=== PATIENT | female | born 1980 | race American Indian/Alaskan Native ===

== ENCOUNTER 2018-06-30 23:15 | Emergency (ER) | payer MEDICAID ==
[~2018-06-30] VITALS: Ht 170.2 cm; Wt 75.0 kg
[~2018-06-30 23:15] MED LIST: CLIN300C85 PO; HYDR-3965 PO; NO HOME MEDS; ONDA8TAB9 PO; PENI500T2 PO
[2018-06-30 23:21] VITALS: BP 156/97
== END 2018-07-01 03:45 | disposition left against medical advice (07) ==
LOC: ER 23:16
DX: K08.89 Other specified disorders of teeth and supporting structures (principal); Z53.21 Procedure and treatment not carried out due to patient leaving prior to being seen by health care provider

== ENCOUNTER 2018-11-01 21:07 | Emergency (ER) | payer MEDICAID ==
[~2018-11-01] VITALS: Ht 170.2 cm; Wt 82.8 kg
[~2018-11-01 21:07] MED LIST changes: +CLIN-96 PO; -CLIN300C85 PO
[2018-11-01 21:21] VITALS: BP 151/92
[2018-11-01 22:12] LABS: URINE HCG NEGATIVE (NEG)
== END 2018-11-01 23:02 | disposition home or self-care (01) ==
LOC: ER 21:08
DX: R10.84 Generalized abdominal pain (principal); J45.909 Unspecified asthma, uncomplicated; F17.200 Nicotine dependence, unspecified, uncomplicated; Z98.890 Other specified postprocedural states; Z79.899 Other long term (current) drug therapy; Z59.0 Homelessness; Z56.0 Unemployment, unspecified
CPT/HCPCS: 81025; 99283

== ENCOUNTER 2018-12-03 21:07 | Emergency (ER) | payer MEDICAID ==
[~2018-12-03] VITALS: Ht 170.2 cm; Wt 79.5 kg
--- NOTE | 2018-12-03 22:01 | NUR ---
CASE # [id number] Addendum: 12/03/18 at 2223 by DEISY case # [id number]
--- NOTE | 2018-12-03 22:02 | NUR ---
[employer]IDIA OFFICER HERE TO SEE PT.
--- NOTE | 2018-12-03 22:02 | NUR ---
POLICE HERE. TOOK HIM TO HER.
[2018-12-03 22:56] VITALS: BP 145/87
== END 2018-12-03 22:57 | disposition home or self-care (01) ==
LOC: ER 21:07
DX: S50.12XA Contusion of left forearm, initial encounter (principal); J45.909 Unspecified asthma, uncomplicated; F15.90 Other stimulant use, unspecified, uncomplicated; Z90.49 Acquired absence of other specified parts of digestive tract; Z98.890 Other specified postprocedural states; Z79.899 Other long term (current) drug therapy; Z59.0 Homelessness; Z56.0 Unemployment, unspecified; Y00.XXXA Assault by blunt object, initial encounter; Y93.89 Activity, other specified; Y92.89 Other specified places as the place of occurrence of the external cause; Y99.8 Other external cause status
CPT/HCPCS: 73090; 99283

== ENCOUNTER 2019-01-30 00:53 | Emergency (ER) | payer MEDICAID ==
[~2019-01-30] VITALS: Ht 170.2 cm; Wt 80.0 kg
[2019-01-30 01:34] LABS: BASOPHILS % (AUTO) 0.3 % (0-1); EOSINOPHILS % (AUTO) 0.1 % (0-6); HEMATOCRIT 32.4 % (35.0-45.0); LYMPHOCYTES # (AUTO) 2.5 X10'3 (1.1-4.8); LYMPHOCYTES % (AUTO) 28.2 % (21-51); MEAN CORPUSCULAR HEMOGLOBIN 29.9 PG (27.0-31.0); MEAN PLATELET VOLUME 7.3 FL (7.4-10.4); MONOCYTES # (AUTO) 0.6 X10'3 (0-0.9); MONOCYTES % (AUTO) 7.2 % (2-12); NEUTROPHILS # (AUTO) 5.6 X10'3 (1.8-7.7); NEUTROPHILS % (AUTO) 64.2 % (42-75); PLATELET COUNT 378 X10'3 (140-440); RED BLOOD COUNT 3.68 X10'6 (4.20-5.60); WHITE BLOOD COUNT 8.7 X10'3 (4.5-11.0)
[2019-01-30] MEDS ORDERED: IBUP-1985 PO (01:39)
[2019-01-30] MEDS ORDERED: ALBU8.5H8 INH (01:41)
[2019-01-30 02:01] VITALS: BP 111/75
== END 2019-01-30 02:05 | disposition home or self-care (01) ==
LOC: ER 00:54
DX: N93.8 Other specified abnormal uterine and vaginal bleeding (principal); J45.909 Unspecified asthma, uncomplicated; F15.90 Other stimulant use, unspecified, uncomplicated; Z90.49 Acquired absence of other specified parts of digestive tract; Z98.890 Other specified postprocedural states; Z59.0 Homelessness; Z56.0 Unemployment, unspecified; Z79.899 Other long term (current) drug therapy; Z98.51 Tubal ligation status
CPT/HCPCS: 36415; 85025; 99283

== ENCOUNTER 2019-02-28 21:20 | Emergency (ER) | payer MEDICAID ==
[~2019-02-28] VITALS: Ht 172.7 cm; Wt 75.8 kg
[~2019-02-28 21:20] MED LIST changes: +ALBU8.5H8 INH; +IBUP-1985 PO
[2019-03-01] MEDS ORDERED: ketorolac trometh inj. 60 MG/2 ML VIAL IM ONE (00:15)
[2019-03-01] MEDS ORDERED: aspirin 325mg tablet PO ONE (00:15)
[2019-03-01] MEDS ORDERED: acetaminophen 325mg tablet PO ONE (00:15)
--- NOTE | 2019-03-01 00:49 | NUR ---
VERBAL ORDER FOR TORADOL CHANGE OF DOSE AND ROUTE.
[2019-03-01] MEDS ORDERED: ketorolac trometh. 30mg/ml inj. IV ONE (00:50)
[2019-03-01 00:53] LABS: BASOPHILS % (AUTO) 0.4 % (0-1); EOSINOPHILS % (AUTO) 0.2 % (0-6); HEMATOCRIT 34.5 % (35.0-45.0); HEMOGLOBIN 11.6 g/dl (12.0-16.0); LYMPHOCYTES # (AUTO) 1.1 X10'3 (1.1-4.8); LYMPHOCYTES % (AUTO) 11.6 % (21-51); MEAN CORPUSCULAR HEMOGLOBIN 29.1 PG (27.0-31.0); MEAN CORPUSCULAR HGB CONC 33.6 g/dL (33.0-36.5); MEAN CORPUSCULAR VOLUME 86.6 FL (78-98); MEAN PLATELET VOLUME 7.4 FL (7.4-10.4); MONOCYTES # (AUTO) 0.8 X10'3 (0-0.9); MONOCYTES % (AUTO) 8.9 % (2-12); NEUTROPHILS # (AUTO) 7.5 X10'3 (1.8-7.7); NEUTROPHILS % (AUTO) 78.9 % (42-75); PLATELET COUNT 364 X10'3 (140-440); RED BLOOD COUNT 3.98 X10'6 (4.20-5.60); RED CELL DISTRIBUTION WIDTH 13.4 % (11.5-14.5); WHITE BLOOD COUNT 9.5 X10'3 (4.5-11.0)
[2019-03-01 01:04] LABS: ALANINE AMINOTRANSFERASE 21 U/L (12-78); ALBUMIN 3.4 G/DL (3.4-5.0); ALBUMIN/GLOBULIN RATIO 0.8 (1.1-1.5); ALKALINE PHOSPHATASE 76 IU/L (46-116); ANION GAP 7 (8-16); ASPARTATE AMINO TRANSFERASE 13 U/L (10-37); BILIRUBIN,TOTAL 0.4 MG/DL (0.1-1.0); BLOOD UREA NITROGEN 4 MG/DL (7-18); BUN/CREATININE RATIO 4.6 (6.6-38.0); CALCIUM 8.5 MG/DL (8.5-10.1); CHLORIDE 105 MMOL/L (99-107); CREATININE 0.87 MG/DL (0.40-0.90); GLUCOSE 99 MG/DL (70-104); POTASSIUM 3.9 MMOL/L (3.5-5.1); SODIUM 139 MMOL/L (135-145); TOTAL PROTEIN 7.6 G/DL (6.4-8.2); eGFR 73 ML/MIN
[2019-03-01 01:46] LABS: D-DIMER 0.62 MG/L FEU (0-0.50)
--- NOTE | 2019-03-01 01:49 | NUR ---
PT UP TO BR WITH STEADY GAIT. REPORTS SHE IS "READY TO GO HOME" . PTS BOYFRIEND , GRANT , AT BEDSIDE.
[2019-03-01 02:03] LABS: UA COLLECTION TYPE CLN CATCH MIDSTREAM
[2019-03-01 02:04] LABS: URINE HCG NEGATIVE (NEG)
[2019-03-01 02:05] LABS: CLARITY,URINE CLOUDY (Clear); COLOR,URINE YELLOW (Yellow); GLUCOSE, URINE NEGATIVE (Neg); KETONES,URINE NEGATIVE (Neg); LEUKOCYTE ESTERASE ,URINE MODERATE (Neg); NITRITES, URINE POSITIVE (Neg); OCCULT BLOOD,URINE MODERATE (Neg); PROTEIN,URINE TRACE mg/dl (Neg); UROBILINOGEN,URINE 0.2 E.U/dL (0.2-1.0)
[2019-03-01] MEDS ORDERED: normal saline 1000ml 1,000 ML IV ONE (02:05)
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
[2019-03-01 02:14] LABS: BACTERIA,URINE 3+ /HPF (Neg); HYALINE CASTS 0-3 /LPF (NEGATIVE); MUCUS STRANDS NONE SEEN /LPF (Neg); RBC,URINE 0-2 /HPF (0-2); SQUAMOUS EPITHELIAL CELL,UR MODERATE /LPF (FEW)
[2019-03-01] MEDS ORDERED: ondansetron/PF 4mg/2ml inj IV ONE (02:15)
[2019-03-01 02:17] LABS: URINE AMPHETAMINE SCREEN POSITIVE (Neg); URINE BARBITUATE SCREEN NEGATIVE (Neg); URINE BENZODIAZEPINES SCREEN NEGATIVE (Neg); URINE CANNABINOID SCREEN NEGATIVE (Neg); URINE COCAINE SCREEN NEGATIVE (Neg); URINE METHADONE SCREEN NEGATIVE (Neg); URINE OPIATE SCREEN NEGATIVE (Neg); URINE PHENCYCLIDINE SCREEN NEGATIVE (Neg)
[2019-03-01] MEDS ORDERED: CEPH250T PO (02:59)
[2019-03-01] MEDS ORDERED: CefTRIAXone/D5W-Rocephin 1gm 50 ML IV ONE (03:00)
[2019-03-01 04:09] VITALS: BP 123/69
[2019-03-01] MEDS ORDERED: ALBU8.5H8 INH (04:14)
== END 2019-03-01 04:29 | disposition home or self-care (01) ==
LOC: ER 21:21
DX: R07.89 Other chest pain (principal); N39.0 Urinary tract infection, site not specified; F15.10 Other stimulant abuse, uncomplicated; R51 Headache; J45.909 Unspecified asthma, uncomplicated; Z90.49 Acquired absence of other specified parts of digestive tract; Z98.890 Other specified postprocedural states; Z59.0 Homelessness; Z56.0 Unemployment, unspecified; Z88.5 Allergy status to narcotic agent; Z79.899 Other long term (current) drug therapy
CPT/HCPCS: 36415; 71045; 71260; 80053; 80305; 81001; 81025; 83735; 83880; 84484; 85025; 85379; 87077; 87088; 87186; 93005; 96374; 96375; 99284; J0696; J1885; J2405; J7030

== ENCOUNTER 2020-10-26 16:26 | Emergency (ER) | payer MEDICAID ==
[~2020-10-26] VITALS: Ht 172.7 cm; Wt 72.7 kg
[~2020-10-26 16:26] MED LIST changes: -CLIN-96 PO; +CLIN-97 PO
[2020-10-26 16:28] VITALS: BP 130/83
[2020-10-26] MEDS ORDERED: IBUP-1984 PO (17:01)
== END 2020-10-26 17:43 | disposition home or self-care (01) ==
LOC: ER 16:26
DX: S50.11XA Contusion of right forearm, initial encounter (principal); J45.909 Unspecified asthma, uncomplicated; F15.90 Other stimulant use, unspecified, uncomplicated; Z90.49 Acquired absence of other specified parts of digestive tract; Z98.890 Other specified postprocedural states; Z59.0 Homelessness; Z56.0 Unemployment, unspecified; Z88.5 Allergy status to narcotic agent; Z79.899 Other long term (current) drug therapy; X58.XXXA Exposure to other specified factors, initial encounter; Y93.89 Activity, other specified; Y92.89 Other specified places as the place of occurrence of the external cause; Y99.8 Other external cause status
CPT/HCPCS: 99282

== ENCOUNTER 2021-02-18 17:38 | Emergency (ER) | payer MEDICAID ==
[~2021-02-18] VITALS: Ht 170.2 cm; Wt 72.7 kg
[~2021-02-18 17:38] MED LIST changes: +ALBU8.5H17 INH; -ALBU8.5H8 INH
[2021-02-18 17:56] VITALS: BP 118/67
== END 2021-02-18 20:18 | disposition home or self-care (01) ==
LOC: ER 17:38
DX: U07.1 COVID-19 (principal); J45.909 Unspecified asthma, uncomplicated; Z56.0 Unemployment, unspecified; Z59.0 Homelessness
CPT/HCPCS: 87635; 99283; C9803

== ENCOUNTER 2021-09-20 11:27 | Emergency (ER) | payer MEDICAID ==
[~2021-09-20] VITALS: Ht 170.2 cm; Wt 70.9 kg
[2021-09-20 11:36] VITALS: BP 150/95
[2021-09-20] MEDS ORDERED: TETanus/Pertussis (Acell)/Diphther VAC/PF (Tdap-Adult) 0.5ml syringe IMVAC ONE (11:55)
[2021-09-20] MEDS ORDERED: ALBU6.7H9 INH (12:05)
== END 2021-09-20 12:25 | disposition home or self-care (01) ==
LOC: ER 11:28
DX: S51.011A Laceration without foreign body of right elbow, initial encounter (principal); J45.909 Unspecified asthma, uncomplicated; F15.90 Other stimulant use, unspecified, uncomplicated; Z76.0 Encounter for issue of repeat prescription; Z56.0 Unemployment, unspecified; Z59.00 Homelessness unspecified; Z90.49 Acquired absence of other specified parts of digestive tract; Z98.891 History of uterine scar from previous surgery; Z88.8 Allergy status to other drugs, medicaments and biological substances; Z79.899 Other long term (current) drug therapy; Z79.2 Long term (current) use of antibiotics; W26.8XXA Contact with other sharp object(s), not elsewhere classified, initial encounter; Y93.89 Activity, other specified; Y92.89 Other specified places as the place of occurrence of the external cause; Y99.8 Other external cause status
CPT/HCPCS: 90471; 90715; 99283

== ENCOUNTER 2022-03-15 13:32 | Emergency (ER) | payer MEDICAID ==
[~2022-03-15] VITALS: Ht 170.2 cm; Wt 81.8 kg
[~2022-03-15 13:32] MED LIST changes: +ALBU6.7H9 INH
[2022-03-15 14:42] VITALS: BP 126/79
[2022-03-15] MEDS ORDERED: CEPH-585 PO (15:45)
== END 2022-03-15 16:34 | disposition home or self-care (01) ==
LOC: ER 13:33
DX: S90.861D Insect bite (nonvenomous), right foot, subsequent encounter (principal); J45.909 Unspecified asthma, uncomplicated; F15.10 Other stimulant abuse, uncomplicated; Z59.00 Homelessness unspecified; Z56.0 Unemployment, unspecified; Z90.49 Acquired absence of other specified parts of digestive tract; Z98.890 Other specified postprocedural states; Z88.5 Allergy status to narcotic agent; Z79.899 Other long term (current) drug therapy; Z79.1 Long term (current) use of non-steroidal anti-inflammatories (NSAID); Z79.2 Long term (current) use of antibiotics; W57.XXXD Bitten or stung by nonvenomous insect and other nonvenomous arthropods, subsequent encounter
CPT/HCPCS: 93005; 99283

== ENCOUNTER 2022-04-17 23:05 | Emergency (ER) | payer MEDICAID ==
[~2022-04-17] VITALS: Ht 170.2 cm; Wt 81.8 kg
[~2022-04-17 23:05] MED LIST changes: +ALBU6.7H14 INH; -ALBU6.7H9 INH; +CEPH-585 PO
[2022-04-18] MEDS ORDERED: sulfamethoxazole/trimethoprim DS (800/160mg) tablet PO ONE (01:55)
[2022-04-18] MEDS ORDERED: SULF1TAB49 PO (02:07)
[2022-04-18 02:22] VITALS: BP 145/99
== END 2022-04-18 02:23 | disposition home or self-care (01) ==
LOC: ER 23:05
DX: L97.429 Non-pressure chronic ulcer of left heel and midfoot with unspecified severity (principal); J45.909 Unspecified asthma, uncomplicated; F15.90 Other stimulant use, unspecified, uncomplicated; Z90.89 Acquired absence of other organs; Z98.890 Other specified postprocedural states; Z56.0 Unemployment, unspecified; Z59.00 Homelessness unspecified; Z88.8 Allergy status to other drugs, medicaments and biological substances; Z79.2 Long term (current) use of antibiotics; Z79.899 Other long term (current) drug therapy
CPT/HCPCS: 99283

== ENCOUNTER 2024-01-08 03:20 | Emergency (ER) | payer MEDICAID ==
[~2024-01-08] VITALS: Ht 170.2 cm; Wt 86.4 kg
[~2024-01-08 03:20] MED LIST changes: -CEPH-585 PO; +CHLO473M2 PO
[2024-01-08] MEDS ORDERED: AMOX500C2 PO (04:11)
[2024-01-08] MEDS: amoxicillin 250mg capsule PO ONE (04:21)
[2024-01-08] MEDS: ondansetron 4mg rapidly disintigrating tab PO ONE (04:21)
[2024-01-08 04:25] VITALS: BP 121/91; PULSE 111; RESP 18; TEMP 98.4; O2SAT 100
== END 2024-01-08 04:27 | disposition home or self-care (01) ==
LOC: ER 03:21
DX: K04.7 Periapical abscess without sinus (principal); J45.909 Unspecified asthma, uncomplicated; F15.90 Other stimulant use, unspecified, uncomplicated; Z56.0 Unemployment, unspecified; Z59.00 Homelessness unspecified; Z90.49 Acquired absence of other specified parts of digestive tract; Z98.891 History of uterine scar from previous surgery; Z88.8 Allergy status to other drugs, medicaments and biological substances; Z79.2 Long term (current) use of antibiotics; Z79.899 Other long term (current) drug therapy
CPT/HCPCS: 99284

== ENCOUNTER 2024-02-26 13:44 | Emergency (ER) | payer MEDICAID ==
[~2024-02-26] VITALS: Ht 170.2 cm; Wt 84.8 kg
[2024-02-26 14:46] LABS: BASOPHILS % (AUTO) 0.4 % (0-1); EOSINOPHILS % (AUTO) 0 % (0-6); LYMPHOCYTES # (AUTO) 1.5 X10'3 (1.1-4.8); MEAN CORPUSCULAR HEMOGLOBIN 29.1 PG (27.0-31.0); MEAN CORPUSCULAR HGB CONC 33.1 g/dL (33.0-36.5); MEAN CORPUSCULAR VOLUME 87.8 FL (78-98)
[2024-02-26 14:47] LABS: ALANINE AMINOTRANSFERASE 20 U/L (12-78); ALBUMIN 3.4 G/DL (3.4-5.0); ALBUMIN/GLOBULIN RATIO 0.7 (1.1-1.5); ALKALINE PHOSPHATASE 94 IU/L (46-116); AMYLASE 44 U/L (25-115); ANION GAP 9 (8-16); ASPARTATE AMINO TRANSFERASE 16 U/L (10-37); BILIRUBIN,TOTAL 0.6 MG/DL (0.1-1.0); BLOOD UREA NITROGEN 9 MG/DL (7-18); BUN/CREATININE RATIO 8.9 (10.0-20.0); CALCIUM 9.2 MG/DL (8.5-10.1); CHLORIDE 99 MMOL/L (99-107); CREATININE 1.01 MG/DL (0.40-0.90); GLUCOSE 116 MG/DL (70-104); LIPASE 23 U/L (16-77); POTASSIUM 3.9 MMOL/L (3.5-5.1); SODIUM 136 MMOL/L (135-145); TOTAL CARBON DIOXIDE 28.4 MMOL/L (24-32); TOTAL PROTEIN 8.3 G/DL (6.4-8.2); eCRCL 70 ML/MIN; eGFR 60 ML/MIN
[2024-02-26 14:48] LABS: HEMATOCRIT 40.1 % (35.0-45.0); HEMOGLOBIN 13.3 g/dl (12.0-16.0); LYMPHOCYTES % (AUTO) 14.6 % (21-51); MEAN PLATELET VOLUME 7.8 FL (7.4-10.4); MONOCYTES % (AUTO) 9.7 % (2-12); NEUTROPHILS # (AUTO) 7.7 X10'3 (1.8-7.7); NEUTROPHILS % (AUTO) 75.3 % (42-75); PLATELET COUNT 317 X10'3 (140-440); RED BLOOD COUNT 4.57 X10'6 (4.20-5.60); RED CELL DISTRIBUTION WIDTH 13.5 % (11.5-14.5); WHITE BLOOD COUNT 10.3 X10'3 (4.5-11.0)
[2024-02-26] MEDS: acetaminophen 1,000mg/100ml IV 100 ML IV ONE (15:53)
[2024-02-26] MEDS: normal saline 1000ML IV soln IV ONE (15:54)
[2024-02-26 16:59] LABS: BETA HCG,QUANTITATIVE < 1.0 mIU/ml
[2024-02-26 17:14] LABS: HCG SERUM QL NEGATIVE
[2024-02-26 18:34] LABS: BILIRUBIN,URINE NEGATIVE (Neg); CLARITY,URINE SLIGHTLY CLOUDY (Clear); COLOR,URINE YELLOW (Yellow); GLUCOSE, URINE NEGATIVE (Neg); KETONES,URINE NEGATIVE (Neg); LEUKOCYTE ESTERASE ,URINE TRACE (Neg); NITRITES, URINE POSITIVE (Neg); OCCULT BLOOD,URINE TRACE-INTACT (Neg); PROTEIN,URINE NEGATIVE (Neg); UROBILINOGEN,URINE 0.2 E.U/dL (0.2-1.0)
[2024-02-26 18:52] LABS: UA COLLECTION TYPE CLN CATCH MIDSTREAM
[2024-02-26 18:53] LABS: BACTERIA,URINE 4+ /HPF (Neg); SQUAMOUS EPITHELIAL CELL,UR MANY /LPF (FEW)
[2024-02-26 18:54] LABS: RBC,URINE 0-2 /HPF (0-2)
[2024-02-26] MEDS ORDERED: CEPH-585 PO (19:00)
[2024-02-26] MEDS: CefTRIAXone/D5W-Rocephin 1gm 50 ML IV ONE (19:30)
[2024-02-26 19:45] VITALS: BP 104/66; PULSE 98; RESP 16; TEMP 98.7; O2SAT 100
== END 2024-02-26 19:47 | disposition home or self-care (01) ==
LOC: ER 13:45
DX: N39.0 Urinary tract infection, site not specified (principal); Z20.822 Contact with and (suspected) exposure to COVID-19; J45.909 Unspecified asthma, uncomplicated; F15.90 Other stimulant use, unspecified, uncomplicated; Z88.5 Allergy status to narcotic agent; Z79.899 Other long term (current) drug therapy; Z79.1 Long term (current) use of non-steroidal anti-inflammatories (NSAID); Z79.2 Long term (current) use of antibiotics; Z98.890 Other specified postprocedural states
CPT/HCPCS: 36415; 71045; 74176; 80053; 81001; 82150; 83605; 83690; 84145; 84702; 84703; 85025; 87040; 87502; 87503; 87811; 96365; 96375; 99285; J0131; J0696; J7030; A4353

== ENCOUNTER 2024-12-23 04:24 | Emergency (ER) | payer MEDICAID ==
[~2024-12-23] VITALS: Ht 172.7 cm; Wt 88.2 kg
[~2024-12-23 04:24] MED LIST changes: +CEPH-585 PO
[2024-12-23 04:26] VITALS: PULSE 109
[2024-12-23 05:17] VITALS: BP 120/78; O2SAT 100
--- NOTE | 2024-12-23 06:57 | RADIOLOGY REPORT ---
EXAM: XR Left Shoulder Complete, 2 or More Views CLINICAL INDICATION: Pain TECHNIQUE: Two or more views of the left shoulder. COMPARISON: No relevant prior studies available. FINDINGS: BONES/JOINTS: Unremarkable. No acute fracture. No dislocation. SOFT TISSUES: Unremarkable. IMPRESSION: No acute fracture.
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
[2024-12-23] MEDS: ketorolac trometh 30MG/ML vial 30 MG/ML VIAL IM ONE ×2 (07:08→07:09)
[2024-12-23 07:09] VITALS: RESP 16
[2024-12-23 07:13] VITALS: TEMP 98
== END 2024-12-23 07:14 | disposition home or self-care (01) ==
LOC: ER 04:25
DX: S16.1XXA Strain of muscle, fascia and tendon at neck level, initial encounter (principal); J45.909 Unspecified asthma, uncomplicated; F15.90 Other stimulant use, unspecified, uncomplicated; Z88.5 Allergy status to narcotic agent; Z88.8 Allergy status to other drugs, medicaments and biological substances; Z90.49 Acquired absence of other specified parts of digestive tract; V86.95XA Unspecified occupant of 3- or 4- wheeled all-terrain vehicle (ATV) injured in nontraffic accident, initial encounter; Y93.89 Activity, other specified; Y92.89 Other specified places as the place of occurrence of the external cause; Y99.8 Other external cause status
CPT/HCPCS: 73030; 96372; 99283; J1885

== ENCOUNTER 2025-03-02 13:20 | Emergency (ER) | payer MEDICAID ==
[~2025-03-02] VITALS: Ht 170.2 cm; Wt 85.0 kg
[~2025-03-02 13:20] MED LIST changes: -CEPH-585 PO; +CLIN-224 PO; -CLIN-97 PO; -IBUP-1985 PO; +IBUP600T52 PO
[2025-03-02 13:49] VITALS: TEMP 98.1
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
[2025-03-02 15:01] VITALS: BP 129/90; PULSE 96; RESP 18; O2SAT 99
[2025-03-02] MEDS ORDERED: SULF1TAB49 PO (15:05)
== END 2025-03-02 15:20 | disposition home or self-care (01) ==
LOC: ER 13:20
DX: L02.423 Furuncle of right upper limb (principal); J45.909 Unspecified asthma, uncomplicated; F15.90 Other stimulant use, unspecified, uncomplicated; Z88.5 Allergy status to narcotic agent; Z88.8 Allergy status to other drugs, medicaments and biological substances; Z90.49 Acquired absence of other specified parts of digestive tract
CPT/HCPCS: 99283